=== PATIENT | male | born 1940 | race Caucasian/White ===

== ENCOUNTER 2018-06-24 09:18 | Inpatient (IN) | payer MEDICARE, BC ==
[~2018-06-24 09:18] MED LIST: DESFLURANE 15 MIN
[2018-06-24] MEDS: LACTATED RINGER'S 1,000 ML IV* (10:33)
[2018-06-24] MEDS ORDERED: HEPARIN 1000 UNITS/ML 10 ML INJ (11:40)
[2018-06-24] MEDS ORDERED: GELATIN SIZE 100 SPONGE (11:40)
[2018-06-24] MEDS ORDERED: PROPOFOL 20 ML (12:05)
[2018-06-24] MEDS ORDERED: ROCURONIUM 50 MG INJ (12:09)
[2018-06-24] MEDS ORDERED: LABETALOL HCL 20MG INJ (12:38)
[2018-06-24] MEDS ORDERED: CEFAZOLIN 1 GM INJ (13:08)
[2018-06-24] MEDS ORDERED: DEXAMETHASONE 4 MG/ML 5 ML INJ (13:09)
[2018-06-24] MEDS ORDERED: ONDANSETRON 4 MG INJ (13:09)
[2018-06-24] MEDS ORDERED: morphine 10 MG INJ (13:10)
[2018-06-24] MEDS: BUPIVACAINE 0.5%/EPI (SDV) 30 ML INJ (13:45)
[2018-06-24] MEDS: THROMBIN 5000 UNIT VIAL (13:46)
[2018-06-24] MEDS: POLYMYXIN/BACITRACIN 1L IRRIG IRR (13:47)
[2018-06-24] MEDS: SURGIFOAM POWDER 1 GM KIT (13:48)
[2018-06-24] MEDS ORDERED: METOCLOPRAMIDE 10 MG INJ IV (15:30)
[2018-06-24] MEDS ORDERED: ACETAMINOPHEN 325 MG TAB PO (15:30)
[2018-06-24] MEDS ORDERED: morphine 4 MG/ML VIAL (15:30)
[2018-06-24] MEDS ORDERED: FENTAnyl 50 MCG/ML VIAL IV ×2 (15:30)
[2018-06-24] MEDS ORDERED: MEPERIDINE 25 MG INJ IV (15:30)
[2018-06-24] MEDS ORDERED: EPHEDrine SULFATE 50 MG/5 ML SYG IV (15:30)
[2018-06-24] MEDS ORDERED: ONDANSETRON 4 MG INJ IV ×2 (15:30)
[2018-06-24] MEDS ORDERED: NALOXONE (0.4 MG/ML) INJ IV (15:30)
[2018-06-24] MEDS ORDERED: DIPHENHYDRAMINE 25 MG CAP PO (15:30)
[2018-06-24] MEDS ORDERED: CEPASTAT LOZENGE MT (15:30)
[2018-06-24] MEDS ORDERED: ALBUTEROL 0.083% (NEB) 2.5 MG/3 ML AMP HHN (15:30)
[2018-06-24] MEDS ORDERED: HYDROmorphONE 0.5 MG/0.5 ML SYG IV ×3 (15:30)
[2018-06-24] MEDS ORDERED: AL HYDROX/MG HYDROX/SIMETH 30 ML CUP PO (15:30)
[2018-06-24] MEDS ORDERED: DIPHENHYDRAMINE 50 MG INJ IV (15:30)
[2018-06-24] MEDS ORDERED: OXYCODONE/ACETAMINOPHEN (10/325) TAB PO (15:30)
[2018-06-24] MEDS ORDERED: BISACODYL 10 MG SUPP PR (15:30)
[2018-06-24] MEDS ORDERED: MIDAZOLAM 1 MG/ML 2 ML INJ IV (15:30)
[2018-06-24] MEDS ORDERED: HYDROmorphONE 1 MG/ML SYG (15:32)
[2018-06-24] MEDS ORDERED: FENTAnyl 50 MCG/ML VIAL ×2 (15:39→15:49)
[2018-06-24] MEDS ORDERED: hydrALAzine 20 MG INJ (16:01)
[2018-06-24] MEDS: hydrALAzine 20 MG INJ IV (16:10)
[2018-06-24] MEDS: FENTAnyl 50 MCG/ML VIAL IV ×5 (16:11→16:55)
[2018-06-24] MEDS: LABETALOL HCL 20MG INJ IV (16:22)
[2018-06-24] MEDS: D5W-0.45 NACL + KCL 20 MEQ 1,000 ML IV (16:26)
[2018-06-24] MEDS: CEFAZOLIN 1 GM/50 ML (PMX) 50 ML IVPB (16:32)
[2018-06-24] MEDS: HYDROmorphONE 0.2 MG/ML PCA IV (18:33)
[2018-06-24] MEDS: HYDROmorphONE 0.5 MG/0.5 ML SYG IV (19:33)
[2018-06-24] MEDS: CYCLOBENZAPRINE 10 MG TAB PO (22:08)
[2018-06-24] MEDS: ATORVASTATIN 10 MG TAB PO (22:08)
[2018-06-24] MEDS: DOCUSATE SODIUM 100 MG CAP PO (22:08)
[2018-06-25] MEDS: BUPIVACAINE 0.5%/EPI (SDV) 30 ML INJ
[2018-06-25] MEDS: CEFAZOLIN 1 GM/50 ML (PMX) 50 ML IVPB ×3 (00:07→18:22)
[2018-06-25] MEDS: DIPHENHYDRAMINE 50 MG INJ IV (00:08)
[2018-06-25] MEDS: HYDROmorphONE 0.2 MG/ML PCA IV ×3 (02:13→19:37)
[2018-06-25] MEDS: HYDROmorphONE 0.5 MG/0.5 ML SYG IV ×4 (03:43→19:51)
[2018-06-25] MEDS: D5W-0.45 NACL + KCL 20 MEQ 1,000 ML IV ×2 (03:47→16:16)
[2018-06-25 04:37] LABS: ADD MAN DIFF? NO
[2018-06-25 04:39] LABS: BASOPHILS % 0.2 % (0.0-2.0); HEMATOCRIT 38.7 % (42.0-52.0); HEMOGLOBIN 13.5 g/dl (14.0-18.0); LYMPHOCYTES # 1.3 10^3/ul (0.8-2.9); LYMPHOCYTES % 12.9 % (15.0-51.0); MEAN CORPUSCULAR HEMOGLOBIN 34.5 pg (29.0-33.0); MEAN CORPUSCULAR HGB CONC 34.9 g/dl (32.0-37.0); MEAN PLATELET VOLUME 9.5 fl (7.4-10.4); MONOCYTE # 1.4 10^3/ul (0.3-0.9); MONOCYTES % 14.1 % (0.0-11.0); NEUTROPHIL # 7.3 10^3/ul (1.6-7.5); NEUTROPHILS % 72.5 % (39.0-77.0); PLATELET COUNT 183 10^3/UL (140-415); RED BLOOD COUNT 3.91 10^6/ul (4.70-6.10)
[2018-06-25 04:39] LABS: WHITE BLOOD COUNT 10.1 10^3/ul (4.8-10.8)
[2018-06-25 05:00] LABS: ANION GAP 5 (5-13); BLOOD UREA NITROGEN 11 mg/dl (7-20); CALCIUM 8.6 mg/dl (8.4-10.2); CARBON DIOXIDE 25 mmol/L (21-31); CHLORIDE 106 mmol/L (97-110); GLUCOSE 118 mg/dl (70-220); MAGNESIUM 1.9 mg/dl (1.7-2.5); POTASSIUM 3.7 mmol/L (3.5-5.1); SODIUM 136 mmol/L (135-144)
[2018-06-25] MEDS: CEFAZOLIN 2 GM/50 ML (PMX) 50 ML IVPB (06:00)
[2018-06-25] MEDS: PANTOPRAZOLE 40 MG INJ IV (06:14)
[2018-06-25] MEDS ORDERED: SURGIFOAM POWDER 1 GM KIT ×4 (06:39→11:45)
[2018-06-25] MEDS ORDERED: HEPARIN 1000 UNITS/ML 10 ML INJ ×2 (06:40→06:51)
[2018-06-25] MEDS ORDERED: SODIUM CL BACTERIOSTATIC 30 ML INJ (06:41)
[2018-06-25] MEDS ORDERED: BUPIVACAINE 0.25% (MPF) 30 ML INJ (06:42)
[2018-06-25] MEDS ORDERED: DESFLURANE 15 MIN (07:00)
[2018-06-25] MEDS ORDERED: CEFAZOLIN 1 GM INJ (07:00)
[2018-06-25] MEDS ORDERED: ROCURONIUM 50 MG INJ ×2 (07:00→07:20)
[2018-06-25] MEDS ORDERED: METOCLOPRAMIDE 10 MG INJ (07:00)
[2018-06-25] MEDS ORDERED: MIDAZOLAM 1 MG/ML 2 ML INJ ×2 (07:20→08:17)
[2018-06-25] MEDS ORDERED: PROPOFOL 20 ML (07:20)
[2018-06-25] MEDS ORDERED: LIDOCAINE 2% (SDV) 5 ML INJ (07:20)
[2018-06-25] MEDS ORDERED: ALBUMIN HUMAN 25% 200 ML (07:20)
[2018-06-25] MEDS ORDERED: SUCCINYLCHOLINE CHLORIDE 100 MG/5 ML SYG IV (07:20)
[2018-06-25] MEDS ORDERED: DEXAMETHASONE 4 MG/ML 5 ML INJ (07:25)
[2018-06-25] MEDS ORDERED: ONDANSETRON 4 MG INJ IV ×2 (07:30→15:30)
[2018-06-25] MEDS ORDERED: DIPHENHYDRAMINE 50 MG INJ IV ×2 (07:30→15:30)
[2018-06-25] MEDS ORDERED: IPRATROPIUM (NEB) 0.5 MG/2.5 ML AMP HHN (07:30)
[2018-06-25] MEDS ORDERED: MEPERIDINE 25 MG INJ IV (07:30)
[2018-06-25] MEDS ORDERED: HYDROmorphONE 0.5 MG/0.5 ML SYG IV ×3 (07:30)
[2018-06-25] MEDS ORDERED: LABETALOL HCL 20MG INJ IV (07:30)
[2018-06-25] MEDS ORDERED: ALBUMIN HUMAN 5% 250 ML IV (07:30)
[2018-06-25] MEDS ORDERED: hydrALAzine 20 MG INJ IV (07:30)
[2018-06-25] MEDS ORDERED: MIDAZOLAM 1 MG/ML 2 ML INJ IV (07:30)
[2018-06-25] MEDS ORDERED: FENTAnyl 50 MCG/ML VIAL IV ×2 (07:30)
[2018-06-25] MEDS ORDERED: LEVALBUTEROL (NEB) 1.25 MG/0.5 ML AMP HHN (07:30)
[2018-06-25] MEDS ORDERED: LORAZEPAM 2 MG INJ IV (07:30)
[2018-06-25] MEDS: CA CHLORIDE 10% 10 ML SYRINGE (08:40)
[2018-06-25] MEDS: CEFAZOLIN 1 GM INJ (08:40)
[2018-06-25] MEDS: THROMBIN 5000 UNIT VIAL ×4 (08:40→12:00)
[2018-06-25] MEDS: DUTASTERIDE 0.5 MG CAP PO (09:00)
[2018-06-25] MEDS: FLUTICASONE/VILANTEROL 200-25 INH DEVICE INH (09:00)
[2018-06-25] MEDS ORDERED: METOPROLOL (XL) 25 MG TAB PO (09:00)
[2018-06-25] MEDS ORDERED: hydrALAzine 20 MG INJ (09:22)
[2018-06-25] MEDS ORDERED: HYDROmorphONE 2 MG/ML SYG (10:36)
[2018-06-25] MEDS ORDERED: THROMBIN 5000 UNIT VIAL (10:42)
[2018-06-25] MEDS ORDERED: KETAMINE (50 MG/ML) 10 ML VIAL (13:48)
[2018-06-25] MEDS ORDERED: PROVENTIL HFA 6.7GM INHALER (15:06)
[2018-06-25] MEDS ORDERED: NALOXONE (0.4 MG/ML) INJ IV (15:30)
[2018-06-25] MEDS ORDERED: BISACODYL 10 MG SUPP PR (15:30)
[2018-06-25] MEDS ORDERED: OXYCODONE/ACETAMINOPHEN (10/325) TAB PO ×2 (15:30)
[2018-06-25] MEDS ORDERED: ACETAMINOPHEN 325 MG TAB PO (15:30)
[2018-06-25] MEDS ORDERED: AL HYDROX/MG HYDROX/SIMETH 30 ML CUP PO (15:30)
[2018-06-25] MEDS ORDERED: CEPASTAT LOZENGE MT (15:30)
[2018-06-25] MEDS: FLUTICASONE/VILANTEROL 100-25 INH (17:30)
[2018-06-25] MEDS: TAMSULOSIN (SR) 0.4 MG CAP PO (21:23)
[2018-06-25] MEDS: ATORVASTATIN 10 MG TAB PO (21:24)
[2018-06-25] MEDS: DOCUSATE SODIUM 100 MG CAP PO (21:24)
[2018-06-25] MEDS: METOPROLOL (XL) 25 MG TAB PO (21:24)
[2018-06-25] MEDS: DIPHENHYDRAMINE 25 MG CAP PO (21:25)
[2018-06-26] MEDS: CEFAZOLIN 1 GM/50 ML (PMX) 50 ML IVPB ×2 (00:46→09:08)
[2018-06-26] MEDS: D5W-0.45 NACL + KCL 20 MEQ 1,000 ML IV ×4 (02:40→21:30)
[2018-06-26] MEDS: HYDROmorphONE 0.5 MG/0.5 ML SYG IV ×5 (02:45→17:08)
[2018-06-26] MEDS: HYDROmorphONE 0.2 MG/ML PCA IV ×3 (03:22→17:09)
[2018-06-26 05:16] LABS: ADD MAN DIFF? NO
[2018-06-26 05:28] LABS: BASOPHILS % 0.1 % (0.0-2.0); HEMATOCRIT 28.1 % (42.0-52.0); HEMOGLOBIN 9.7 g/dl (14.0-18.0); LYMPHOCYTES # 0.7 10^3/ul (0.8-2.9); MEAN CORPUSCULAR HGB CONC 34.5 g/dl (32.0-37.0); MEAN CORPUSCULAR VOLUME 101.4 fl (82.0-101.0); MEAN PLATELET VOLUME 10.6 fl (7.4-10.4); MONOCYTE # 1.5 10^3/ul (0.3-0.9); MONOCYTES % 11.3 % (0.0-11.0); NEUTROPHIL # 10.8 10^3/ul (1.6-7.5); NEUTROPHILS % 83.2 % (39.0-77.0); PLATELET COUNT 143 10^3/UL (140-415); RED BLOOD COUNT 2.77 10^6/ul (4.70-6.10); RED CELL DISTRIBUTION WIDTH 13.1 % (11.5-14.5)
[2018-06-26] MEDS: PANTOPRAZOLE 40 MG INJ IV (05:40)
[2018-06-26 06:18] LABS: ANION GAP 11 (5-13); BLOOD UREA NITROGEN 12 mg/dl (7-20); CALCIUM 8.5 mg/dl (8.4-10.2); CARBON DIOXIDE 21 mmol/L (21-31); CHLORIDE 107 mmol/L (97-110); CREATININE 0.57 mg/dl (0.61-1.24); GLUCOSE 147 mg/dl (70-220); POTASSIUM 4.2 mmol/L (3.5-5.1); SODIUM 139 mmol/L (135-144)
[2018-06-26] MEDS: FINASTERIDE 5 MG TAB PO (09:08)
[2018-06-26] MEDS: DOCUSATE SODIUM 100 MG CAP PO ×2 (09:08→20:28)
[2018-06-26] MEDS: DUTASTERIDE 0.5 MG CAP PO (09:08)
[2018-06-26] MEDS: METOPROLOL (XL) 25 MG TAB PO ×2 (09:09→20:29)
[2018-06-26] MEDS: FLUTICASONE/VILANTEROL 100-25 INH (09:13)
[2018-06-26] MEDS: TAMSULOSIN (SR) 0.4 MG CAP PO (20:28)
[2018-06-26] MEDS: ATORVASTATIN 10 MG TAB PO (20:28)
[2018-06-27] MEDS: HYDROmorphONE 0.2 MG/ML PCA IV ×2 (00:13→07:52)
[2018-06-27] MEDS: D5W-0.45 NACL + KCL 20 MEQ 1,000 ML IV (00:23)
[2018-06-27 05:39] LABS: ADD MAN DIFF? NO
[2018-06-27] MEDS: PANTOPRAZOLE 40 MG INJ IV (05:44)
[2018-06-27 05:46] LABS: BASOPHILS % 0.1 % (0.0-2.0); HEMATOCRIT 26.5 % (42.0-52.0); HEMOGLOBIN 9.2 g/dl (14.0-18.0); LYMPHOCYTES # 0.7 10^3/ul (0.8-2.9); LYMPHOCYTES % 6.1 % (15.0-51.0); MEAN CORPUSCULAR HEMOGLOBIN 34.7 pg (29.0-33.0); MEAN CORPUSCULAR HGB CONC 34.7 g/dl (32.0-37.0); MONOCYTE # 1.3 10^3/ul (0.3-0.9); MONOCYTES % 10.9 % (0.0-11.0); NEUTROPHIL # 9.8 10^3/ul (1.6-7.5); NEUTROPHILS % 82.6 % (39.0-77.0); PLATELET COUNT 122 10^3/UL (140-415); RED BLOOD COUNT 2.65 10^6/ul (4.70-6.10); RED CELL DISTRIBUTION WIDTH 12.8 % (11.5-14.5)
[2018-06-27 05:46] LABS: WHITE BLOOD COUNT 11.9 10^3/ul (4.8-10.8)
[2018-06-27 06:16] LABS: ANION GAP 6 (5-13); BLOOD UREA NITROGEN 6 mg/dl (7-20); CALCIUM 8.7 mg/dl (8.4-10.2); CARBON DIOXIDE 29 mmol/L (21-31); CHLORIDE 95 mmol/L (97-110); CREATININE 0.51 mg/dl (0.61-1.24); GLUCOSE 126 mg/dl (70-220); POTASSIUM 4.4 mmol/L (3.5-5.1); SODIUM 130 mmol/L (135-144)
[2018-06-27] MEDS: FLUTICASONE/VILANTEROL 100-25 INH ×2 (09:00→12:46)
[2018-06-27] MEDS: DUTASTERIDE 0.5 MG CAP PO ×2 (09:00→12:47)
[2018-06-27] MEDS: DOCUSATE SODIUM 100 MG CAP PO ×2 (09:42→20:42)
[2018-06-27] MEDS: FINASTERIDE 5 MG TAB PO (09:42)
[2018-06-27] MEDS: METOPROLOL (XL) 25 MG TAB PO ×2 (09:43→20:43)
[2018-06-27] MEDS: OXYCODONE/ACETAMINOPHEN (5/325) TAB PO (10:46)
[2018-06-27] MEDS: CYCLOBENZAPRINE 10 MG TAB PO ×2 (12:51→18:56)
[2018-06-27] MEDS ORDERED: OXYCODONE/ACETAMINOPHEN (10/325) TAB PO (15:00)
[2018-06-27] MEDS: OXYCODONE/ACETAMINOPHEN (10/325) TAB PO ×2 (16:19→21:39)
[2018-06-27] MEDS: ATORVASTATIN 10 MG TAB PO (20:42)
[2018-06-27] MEDS: TAMSULOSIN (SR) 0.4 MG CAP PO (20:42)
[2018-06-27] MEDS: DOXAZOSIN 4 MG TAB PO (20:43)
== END 2018-06-27 22:20 | DRG 454 ==
LOC: REC 09:18 → MS1 06-27 03:28 → ICU 15:31 → MS1 06-26 22:29
PROC: 0SG10A0 Fusion of 2 or more Lumbar Vertebral Joints with Interbody Fusion Device, Anterior Approach, Anterior Column, Open Approach (ICD-10-PCS; principal; 2018-06-24 12:00)
PROC: 0SB20ZZ Excision of Lumbar Vertebral Disc, Open Approach (ICD-10-PCS; 2018-06-24 12:00)
PROC: 4A11X4G Monitoring of Peripheral Nervous Electrical Activity, Intraoperative, External Approach (ICD-10-PCS; 2018-06-24 12:00)
PROC: 0SG1071 Fusion of 2 or more Lumbar Vertebral Joints with Autologous Tissue Substitute, Posterior Approach, Posterior Column, Open Approach (ICD-10-PCS; 2018-06-24 12:24)
PROC: 0SG30AJ Fusion of Lumbosacral Joint with Interbody Fusion Device, Posterior Approach, Anterior Column, Open Approach (ICD-10-PCS; 2018-06-24 12:24)
PROC: 0SG00AJ Fusion of Lumbar Vertebral Joint with Interbody Fusion Device, Posterior Approach, Anterior Column, Open Approach (ICD-10-PCS; 2018-06-24 12:24)
PROC: 0SG3071 Fusion of Lumbosacral Joint with Autologous Tissue Substitute, Posterior Approach, Posterior Column, Open Approach (ICD-10-PCS; 2018-06-24 12:24)
PROC: 0SB40ZZ Excision of Lumbosacral Disc, Open Approach (ICD-10-PCS; 2018-06-24 12:24)
PROC: 0SB20ZZ Excision of Lumbar Vertebral Disc, Open Approach (ICD-10-PCS; 2018-06-24 12:24)
PROC: 4A11X4G Monitoring of Peripheral Nervous Electrical Activity, Intraoperative, External Approach (ICD-10-PCS; 2018-06-24 12:24)
DX: M41.86 Other forms of scoliosis, lumbar region (principal); D62 Acute posthemorrhagic anemia; M51.16 Intervertebral disc disorders with radiculopathy, lumbar region; I10 Essential (primary) hypertension; E78.5 Hyperlipidemia, unspecified; I25.10 Atherosclerotic heart disease of native coronary artery without angina pectoris; N40.1 Benign prostatic hyperplasia with lower urinary tract symptoms; R39.11 Hesitancy of micturition; J44.9 Chronic obstructive pulmonary disease, unspecified; G47.33 Obstructive sleep apnea (adult) (pediatric); R41.0 Disorientation, unspecified
CPT/HCPCS: 71045; 72020; 72100; 72110; 80048; 83735; 85025; 86850; 86900; 86901; 86920; 86999; 87081; 88184; 88185; 88304; 88307; 88331; 88341; 88342; 88374; 94660; 97110; 97116; 97163; 97530

== ENCOUNTER 2018-06-27 23:00 | Inpatient (IN) | payer MEDICARE, BC ==
[2018-06-28] MEDS ORDERED: MAGNESIUM HYDROXIDE 30ML CUP PO (01:30)
[2018-06-28] MEDS ORDERED: CEPASTAT LOZENGE MT (01:30)
[2018-06-28] MEDS ORDERED: ALBUTEROL 0.083% (NEB) 2.5 MG/3 ML AMP INH (01:30)
[2018-06-28] MEDS ORDERED: LACTULOSE 30ML CUP PO (01:30)
[2018-06-28] MEDS ORDERED: ONDANSETRON 4 MG INJ IV (01:30)
[2018-06-28 02:13] LABS: ADD UMIC YES; UR ASCORBIC ACID NEGATIVE (NEGATIVE); UR BILIRUBIN (Dip) NEGATIVE (NEGATIVE); UR BLOOD (Dip) 1+ mg/dL (NEGATIVE); UR CLARITY CLEAR (CLEAR); UR COLOR YELLOW (YELLOW); UR GLUCOSE (Dip) NEGATIVE (NEGATIVE); UR KETONES (Dip) 1+ mg/dL (NEGATIVE); UR LEUKOCYTE ESTERASE (Dip) NEGATIVE Leu/ul (NEGATIVE); UR NITRITE (Dip) NEGATIVE (NEGATIVE); UR RBC 0 /HPF (0-5); UR SPECIFIC GRAVITY (Dip) 1.008 (1.003-1.030); UR TOTAL PROTEIN (Dip) NEGATIVE (NEGATIVE); UR UROBILINOGEN (Dip) NEGATIVE (NEGATIVE); UR WBC 1 /HPF (0-5)
[2018-06-28] MEDS: OXYCODONE/ACETAMINOPHEN (10/325) TAB PO (04:25)
[2018-06-28] MEDS ORDERED: PANTOPRAZOLE 40 MG INJ IV (06:00)
[2018-06-28 06:35] LABS: ADD MAN DIFF? NO
[2018-06-28 06:50] LABS: EOSINOPHILS % 0.2 % (0.0-7.0); HEMATOCRIT 22.4 % (42.0-52.0); HEMOGLOBIN 7.8 g/dl (14.0-18.0); LYMPHOCYTES # 0.7 10^3/ul (0.8-2.9); LYMPHOCYTES % 9.1 % (15.0-51.0); MEAN CORPUSCULAR HEMOGLOBIN 34.2 pg (29.0-33.0); MEAN CORPUSCULAR HGB CONC 34.8 g/dl (32.0-37.0); MEAN CORPUSCULAR VOLUME 98.2 fl (82.0-101.0); MEAN PLATELET VOLUME 9.6 fl (7.4-10.4); MONOCYTE # 0.8 10^3/ul (0.3-0.9); MONOCYTES % 9.6 % (0.0-11.0); NEUTROPHIL # 6.5 10^3/ul (1.6-7.5); NEUTROPHILS % 80.6 % (39.0-77.0); PLATELET COUNT 135 10^3/UL (140-415); RED BLOOD COUNT 2.28 10^6/ul (4.70-6.10); RED CELL DISTRIBUTION WIDTH 12.4 % (11.5-14.5)
[2018-06-28 07:13] LABS: ALANINE AMINOTRANSFERASE 48 IU/L (13-69); ALBUMIN 2.9 g/dl (3.3-4.9); ALBUMIN/GLOBULIN RATIO 1.31; ALKALINE PHOSPHATASE 49 IU/L (42-121); ANION GAP 7 (5-13); ASPARTATE AMINO TRANSFERASE 61 IU/L (15-46); BILIRUBIN,INDIRECT 0.7 mg/dl (0-1.1); BILIRUBIN,TOTAL 0.7 mg/dl (0.2-1.3); BLOOD UREA NITROGEN 10 mg/dl (7-20); CALCIUM 8.4 mg/dl (8.4-10.2); CARBON DIOXIDE 27 mmol/L (21-31); CHLORIDE 98 mmol/L (97-110); CREATININE 0.52 mg/dl (0.61-1.24); GLUCOSE 105 mg/dl (70-220); POTASSIUM 3.6 mmol/L (3.5-5.1); SODIUM 132 mmol/L (135-144); TOTAL PROTEIN 5.1 g/dl (6.1-8.1)
[2018-06-28] MEDS: HYDROmorphONE 0.5 MG/0.5 ML SYG IV ×2 (08:07→12:12)
[2018-06-28] MEDS ORDERED: HYDROmorphONE 0.5 MG/0.5 ML SYG IV (12:30)
[2018-06-28] MEDS: DUTASTERIDE 0.5 MG CAP PO (12:43)
[2018-06-28] MEDS: PANTOPRAZOLE (EC) 40 MG TAB PO (12:44)
[2018-06-28] MEDS: FLUTICASONE/VILANTEROL 100-25 INH (12:44)
[2018-06-28] MEDS: METOPROLOL (XL) 25 MG TAB PO ×2 (12:45→20:55)
[2018-06-28] MEDS: DOCUSATE SODIUM 100 MG CAP PO ×2 (12:45→20:53)
[2018-06-28] MEDS: HYDROmorphONE 1 MG/ML SYG IV ×5 (13:08→23:03)
[2018-06-28] MEDS: KETOROLAC 30 MG INJ IM ×2 (14:59→15:01)
[2018-06-28] MEDS: SENNA TAB PO (20:54)
[2018-06-28] MEDS: ATORVASTATIN 10 MG TAB PO (20:54)
[2018-06-28] MEDS: TAMSULOSIN (SR) 0.4 MG CAP PO (20:54)
[2018-06-28] MEDS: DOXAZOSIN 4 MG TAB PO (21:58)
[2018-06-29] MEDS: HYDROmorphONE 1 MG/ML SYG IV ×3 (02:00→10:25)
[2018-06-29] MEDS: CYCLOBENZAPRINE 10 MG TAB PO ×3 (03:03→18:30)
[2018-06-29] MEDS: LACTULOSE 30ML CUP PO (07:12)
[2018-06-29] MEDS: PANTOPRAZOLE (EC) 40 MG TAB PO (07:12)
[2018-06-29] MEDS: OXYCODONE/ACETAMINOPHEN (10/325) TAB PO ×4 (07:30→20:18)
[2018-06-29] MEDS: DOCUSATE SODIUM 100 MG CAP PO ×2 (08:02→20:19)
[2018-06-29] MEDS: DUTASTERIDE 0.5 MG CAP PO (08:02)
[2018-06-29] MEDS: FLUTICASONE/VILANTEROL 100-25 INH (08:03)
[2018-06-29] MEDS: METOPROLOL (XL) 25 MG TAB PO ×2 (08:03→20:18)
[2018-06-29] MEDS: ATORVASTATIN 10 MG TAB PO (20:17)
[2018-06-29] MEDS: TAMSULOSIN (SR) 0.4 MG CAP PO (20:17)
[2018-06-29] MEDS: SENNA TAB PO (20:19)
[2018-06-29] MEDS: DOXAZOSIN 4 MG TAB PO (22:12)
[2018-06-30] MEDS: OXYCODONE/ACETAMINOPHEN (10/325) TAB PO ×4 (00:21→18:27)
[2018-06-30] MEDS: HYDROmorphONE 1 MG/ML SYG IV ×7 (01:29→22:35)
[2018-06-30] MEDS: PANTOPRAZOLE (EC) 40 MG TAB PO (07:02)
[2018-06-30 07:23] LABS: ADD MAN DIFF? NO
[2018-06-30 07:27] LABS: BASOPHILS % 0.3 % (0.0-2.0); EOSINOPHILS # 0.3 10^3/ul (0.0-0.5); EOSINOPHILS % 3.6 % (0.0-7.0); HEMATOCRIT 24.3 % (42.0-52.0); HEMOGLOBIN 8.2 g/dl (14.0-18.0); LYMPHOCYTES # 1.1 10^3/ul (0.8-2.9); LYMPHOCYTES % 16.3 % (15.0-51.0); MEAN CORPUSCULAR HEMOGLOBIN 33.6 pg (29.0-33.0); MEAN CORPUSCULAR HGB CONC 33.7 g/dl (32.0-37.0); MEAN CORPUSCULAR VOLUME 99.6 fl (82.0-101.0); MEAN PLATELET VOLUME 8.9 fl (7.4-10.4); MONOCYTE # 1.1 10^3/ul (0.3-0.9); MONOCYTES % 15.9 % (0.0-11.0); NEUTROPHIL # 4.3 10^3/ul (1.6-7.5); NEUTROPHILS % 63.2 % (39.0-77.0); PLATELET COUNT 222 10^3/UL (140-415); RED BLOOD COUNT 2.44 10^6/ul (4.70-6.10); RED CELL DISTRIBUTION WIDTH 12.9 % (11.5-14.5)
[2018-06-30 07:27] LABS: WHITE BLOOD COUNT 6.9 10^3/ul (4.8-10.8)
[2018-06-30 07:57] LABS: ANION GAP 8 (5-13); BLOOD UREA NITROGEN 12 mg/dl (7-20); CALCIUM 8.4 mg/dl (8.4-10.2); CARBON DIOXIDE 32 mmol/L (21-31); CHLORIDE 96 mmol/L (97-110); CREATININE 0.55 mg/dl (0.61-1.24); GLUCOSE 105 mg/dl (70-220); POTASSIUM 3.3 mmol/L (3.5-5.1); SODIUM 136 mmol/L (135-144)
[2018-06-30 08:00] LABS: IRON 33 ug/dl (35-150)
[2018-06-30 08:10] LABS: % IRON SATURATION 15 % SAT (22-52); TOTAL IRON BINDING CAPACITY 227 ug/dl (241-421)
[2018-06-30] MEDS: DOCUSATE SODIUM 100 MG CAP PO ×2 (09:00→20:26)
[2018-06-30] MEDS: GABAPENTIN 100 MG CAP PO ×3 (09:17→20:28)
[2018-06-30] MEDS: BACLOFEN 10 MG TAB PO ×2 (09:17→20:27)
[2018-06-30] MEDS: DUTASTERIDE 0.5 MG CAP PO (09:17)
[2018-06-30] MEDS: METOPROLOL (XL) 25 MG TAB PO ×2 (09:18→20:35)
[2018-06-30] MEDS: FLUTICASONE/VILANTEROL 100-25 INH (09:19)
[2018-06-30] MEDS: FERROUS FUMARATE (SR) TAB PO (14:22)
[2018-06-30] MEDS: POTASSIUM CHLORIDE (SR) 20 MEQ TAB PO (14:22)
[2018-06-30] MEDS: ATORVASTATIN 10 MG TAB PO (20:26)
[2018-06-30] MEDS: SENNA TAB PO (20:26)
[2018-06-30] MEDS: TAMSULOSIN (SR) 0.4 MG CAP PO (20:28)
[2018-06-30] MEDS: DOXAZOSIN 4 MG TAB PO (20:34)
[2018-07-01] MEDS: HYDROmorphONE 1 MG/ML SYG IV ×10 (00:35→23:16)
[2018-07-01] MEDS: PANTOPRAZOLE (EC) 40 MG TAB PO (05:44)
[2018-07-01] MEDS: OXYCODONE/ACETAMINOPHEN (10/325) TAB PO ×2 (06:25→14:21)
[2018-07-01] MEDS: DUTASTERIDE 0.5 MG CAP PO (09:53)
[2018-07-01] MEDS: BACLOFEN 10 MG TAB PO ×2 (09:54→21:04)
[2018-07-01] MEDS: GABAPENTIN 100 MG CAP PO ×3 (09:54→21:04)
[2018-07-01] MEDS: FERROUS FUMARATE (SR) TAB PO (09:54)
[2018-07-01] MEDS: METOPROLOL (XL) 25 MG TAB PO ×2 (09:55→21:04)
[2018-07-01] MEDS: DOCUSATE SODIUM 100 MG CAP PO ×2 (09:55→21:04)
[2018-07-01] MEDS: FLUTICASONE/VILANTEROL 100-25 INH (09:55)
[2018-07-01] MEDS: SENNA TAB PO (21:04)
[2018-07-01] MEDS: ATORVASTATIN 10 MG TAB PO (21:04)
[2018-07-01] MEDS: TAMSULOSIN (SR) 0.4 MG CAP PO (21:04)
[2018-07-01] MEDS: DOXAZOSIN 4 MG TAB PO (21:05)
[2018-07-02] MEDS: HYDROmorphONE 1 MG/ML SYG IV ×2 (02:37→05:45)
[2018-07-02] MEDS: PANTOPRAZOLE (EC) 40 MG TAB PO (05:44)
[2018-07-02] MEDS: FERROUS FUMARATE (SR) TAB PO (08:46)
[2018-07-02] MEDS: DUTASTERIDE 0.5 MG CAP PO (08:46)
[2018-07-02] MEDS: METOPROLOL (XL) 25 MG TAB PO ×2 (08:46→20:39)
[2018-07-02] MEDS: FLUTICASONE/VILANTEROL 100-25 INH (08:46)
[2018-07-02] MEDS: BACLOFEN 10 MG TAB PO ×2 (08:47→20:38)
[2018-07-02] MEDS: GABAPENTIN 100 MG CAP PO ×3 (08:47→20:38)
[2018-07-02] MEDS: DOCUSATE SODIUM 100 MG CAP PO ×2 (08:47→20:37)
[2018-07-02 09:56] LABS: ANION GAP 8 (5-13); BLOOD UREA NITROGEN 11 mg/dl (7-20); CARBON DIOXIDE 27 mmol/L (21-31); CHLORIDE 99 mmol/L (97-110); CREATININE 0.52 mg/dl (0.61-1.24); GLUCOSE 105 mg/dl (70-220); SODIUM 134 mmol/L (135-144)
[2018-07-02] MEDS: OXYCODONE/ACETAMINOPHEN (10/325) TAB PO ×4 (09:57→22:46)
[2018-07-02] MEDS: SENNA TAB PO (20:37)
[2018-07-02] MEDS: TAMSULOSIN (SR) 0.4 MG CAP PO (20:38)
[2018-07-02] MEDS: ATORVASTATIN 10 MG TAB PO (20:38)
[2018-07-02] MEDS: DOXAZOSIN 4 MG TAB PO (20:39)
[2018-07-03] MEDS: OXYCODONE/ACETAMINOPHEN (10/325) TAB PO ×5 (05:18→22:39)
[2018-07-03] MEDS: PANTOPRAZOLE (EC) 40 MG TAB PO (05:18)
[2018-07-03] MEDS: BACLOFEN 10 MG TAB PO ×2 (08:34→21:06)
[2018-07-03] MEDS: DUTASTERIDE 0.5 MG CAP PO (08:34)
[2018-07-03] MEDS: FLUTICASONE/VILANTEROL 100-25 INH (08:34)
[2018-07-03] MEDS: DOCUSATE SODIUM 100 MG CAP PO ×2 (08:34→21:06)
[2018-07-03] MEDS: FERROUS FUMARATE (SR) TAB PO (08:34)
[2018-07-03] MEDS: GABAPENTIN 100 MG CAP PO ×3 (08:34→21:06)
[2018-07-03] MEDS: METOPROLOL (XL) 25 MG TAB PO ×2 (08:35→21:07)
[2018-07-03] MEDS: ATORVASTATIN 10 MG TAB PO (21:06)
[2018-07-03] MEDS: SENNA TAB PO (21:06)
[2018-07-03] MEDS: TAMSULOSIN (SR) 0.4 MG CAP PO (21:06)
[2018-07-03] MEDS: DOXAZOSIN 4 MG TAB PO (21:07)
[2018-07-04] MEDS: DIPHENHYDRAMINE 25 MG CAP PO (00:01)
[2018-07-04] MEDS: ZOLPIDEM 5 MG TAB PO ×2 (01:55→21:33)
[2018-07-04] MEDS: HYDROmorphONE 1 MG/ML SYG IV ×4 (04:36→17:13)
[2018-07-04] MEDS: PANTOPRAZOLE (EC) 40 MG TAB PO (05:55)
[2018-07-04] MEDS: ACETAMINOPHEN 325 MG TAB PO (05:55)
[2018-07-04] MEDS: OXYCODONE/ACETAMINOPHEN (10/325) TAB PO ×2 (08:37→17:50)
[2018-07-04] MEDS: METOPROLOL (XL) 25 MG TAB PO ×2 (09:00→21:34)
[2018-07-04] MEDS: DOCUSATE SODIUM 100 MG CAP PO ×2 (09:00→21:34)
[2018-07-04] MEDS: FERROUS FUMARATE (SR) TAB PO (10:17)
[2018-07-04] MEDS: FLUTICASONE/VILANTEROL 100-25 INH (10:17)
[2018-07-04] MEDS: BACLOFEN 10 MG TAB PO ×2 (10:18→21:33)
[2018-07-04] MEDS: DUTASTERIDE 0.5 MG CAP PO ×2 (14:54→15:01)
[2018-07-04] MEDS: GABAPENTIN 100 MG CAP PO (17:05)
[2018-07-04] MEDS: GABAPENTIN 400 MG CAP PO ×2 (17:50→17:52)
[2018-07-04] MEDS: HYDROmorphONE 2 MG/ML SYG IV (21:19)
[2018-07-04] MEDS: ATORVASTATIN 10 MG TAB PO (21:33)
[2018-07-04] MEDS: SENNA TAB PO (21:33)
[2018-07-04] MEDS: TAMSULOSIN (SR) 0.4 MG CAP PO (21:33)
[2018-07-04] MEDS: DOXAZOSIN 4 MG TAB PO (21:34)
[2018-07-05] MEDS: HYDROmorphONE 2 MG/ML SYG IV ×6 (01:10→22:23)
[2018-07-05] MEDS: PANTOPRAZOLE (EC) 40 MG TAB PO (06:29)
[2018-07-05] MEDS: OXYCODONE/ACETAMINOPHEN (10/325) TAB PO ×4 (06:29→20:18)
[2018-07-05] MEDS: FERROUS FUMARATE (SR) TAB PO (08:49)
[2018-07-05] MEDS: METOPROLOL (XL) 25 MG TAB PO ×2 (08:49→20:19)
[2018-07-05] MEDS: BACLOFEN 10 MG TAB PO ×2 (08:49→20:18)
[2018-07-05] MEDS: DOCUSATE SODIUM 100 MG CAP PO ×2 (08:50→20:18)
[2018-07-05] MEDS: FLUTICASONE/VILANTEROL 100-25 INH (08:50)
[2018-07-05] MEDS: GABAPENTIN 100 MG CAP PO ×2 (08:50→17:22)
[2018-07-05] MEDS: GABAPENTIN 400 MG CAP PO (18:11)
[2018-07-05] MEDS: SENNA TAB PO (20:18)
[2018-07-05] MEDS: ATORVASTATIN 10 MG TAB PO (20:18)
[2018-07-05] MEDS: TAMSULOSIN (SR) 0.4 MG CAP PO (20:19)
[2018-07-05] MEDS: DOXAZOSIN 4 MG TAB PO (20:19)
[2018-07-05] MEDS: ZOLPIDEM 5 MG TAB PO (22:24)
[2018-07-06] MEDS: HYDROmorphONE 2 MG/ML SYG IV ×9 (02:26→23:17)
[2018-07-06] MEDS: OXYCODONE/ACETAMINOPHEN (10/325) TAB PO ×4 (04:45→22:16)
[2018-07-06] MEDS: PANTOPRAZOLE (EC) 40 MG TAB PO (06:22)
[2018-07-06] MEDS: GABAPENTIN 100 MG CAP PO ×2 (08:12→17:05)
[2018-07-06] MEDS: BACLOFEN 10 MG TAB PO ×2 (08:14→21:05)
[2018-07-06] MEDS: DUTASTERIDE 0.5 MG CAP PO (08:14)
[2018-07-06] MEDS: METOPROLOL (XL) 25 MG TAB PO ×2 (08:14→21:06)
[2018-07-06] MEDS: DOCUSATE SODIUM 100 MG CAP PO ×2 (08:14→21:05)
[2018-07-06] MEDS: FLUTICASONE/VILANTEROL 100-25 INH (08:54)
[2018-07-06] MEDS: FERROUS FUMARATE (SR) TAB PO (09:00)
[2018-07-06] MEDS: KETOROLAC 30 MG INJ IV (16:54)
[2018-07-06] MEDS: GABAPENTIN 400 MG CAP PO (18:35)
[2018-07-06] MEDS: TAMSULOSIN (SR) 0.4 MG CAP PO (21:05)
[2018-07-06] MEDS: ATORVASTATIN 10 MG TAB PO (21:05)
[2018-07-06] MEDS: SENNA TAB PO (21:05)
[2018-07-06] MEDS: DOXAZOSIN 4 MG TAB PO (21:06)
[2018-07-07] MEDS: HYDROmorphONE 2 MG/ML SYG IV ×9 (01:20→22:20)
[2018-07-07] MEDS: OXYCODONE/ACETAMINOPHEN (10/325) TAB PO ×2 (04:24→08:38)
[2018-07-07] MEDS: PANTOPRAZOLE (EC) 40 MG TAB PO (05:55)
[2018-07-07] MEDS: FERROUS FUMARATE (SR) TAB PO (08:39)
[2018-07-07] MEDS: GABAPENTIN 100 MG CAP PO ×2 (08:39→18:09)
[2018-07-07] MEDS: DUTASTERIDE 0.5 MG CAP PO (08:39)
[2018-07-07] MEDS: BACLOFEN 10 MG TAB PO ×2 (08:40→21:08)
[2018-07-07] MEDS: METOPROLOL (XL) 25 MG TAB PO ×2 (08:40→21:10)
[2018-07-07] MEDS: DOCUSATE SODIUM 100 MG CAP PO ×2 (08:40→21:08)
[2018-07-07] MEDS: FLUTICASONE/VILANTEROL 100-25 INH (08:41)
[2018-07-07] MEDS: BISACODYL (EC) 5 MG TAB PO (10:06)
[2018-07-07] MEDS: GABAPENTIN 400 MG CAP PO (18:07)
[2018-07-07] MEDS: ATORVASTATIN 10 MG TAB PO (21:08)
[2018-07-07] MEDS: TAMSULOSIN (SR) 0.4 MG CAP PO (21:08)
[2018-07-07] MEDS: SENNA TAB PO (21:08)
[2018-07-07] MEDS: DOXAZOSIN 4 MG TAB PO (21:10)
[2018-07-07] MEDS: ZOLPIDEM 5 MG TAB PO (23:11)
[2018-07-08] MEDS: HYDROmorphONE 2 MG/ML SYG IV ×9 (05:45→23:11)
[2018-07-08] MEDS: PANTOPRAZOLE (EC) 40 MG TAB PO (05:45)
[2018-07-08] MEDS: GABAPENTIN 100 MG CAP PO ×3 (07:44→20:46)
[2018-07-08] MEDS: FERROUS FUMARATE (SR) TAB PO (08:34)
[2018-07-08] MEDS: BACLOFEN 10 MG TAB PO ×2 (08:34→20:45)
[2018-07-08] MEDS: DOCUSATE SODIUM 100 MG CAP PO ×2 (08:37→20:45)
[2018-07-08] MEDS: METOPROLOL (XL) 25 MG TAB PO ×2 (08:37→20:45)
[2018-07-08] MEDS: FLUTICASONE/VILANTEROL 100-25 INH (08:37)
[2018-07-08] MEDS: OXYCODONE/ACETAMINOPHEN (10/325) TAB PO ×2 (09:04→14:28)
[2018-07-08] MEDS: DUTASTERIDE 0.5 MG CAP PO (10:10)
[2018-07-08 14:05] LABS: ADD MAN DIFF? NO
[2018-07-08 14:08] LABS: WHITE BLOOD COUNT 12.4 10^3/ul (4.8-10.8)
[2018-07-08 14:08] LABS: BASOPHILS % 0.3 % (0.0-2.0); EOSINOPHILS # 0.1 10^3/ul (0.0-0.5); EOSINOPHILS % 0.5 % (0.0-7.0); HEMATOCRIT 32.2 % (42.0-52.0); HEMOGLOBIN 10.5 g/dl (14.0-18.0); LYMPHOCYTES # 0.9 10^3/ul (0.8-2.9); LYMPHOCYTES % 6.9 % (15.0-51.0); MEAN CORPUSCULAR HEMOGLOBIN 33.3 pg (29.0-33.0); MEAN CORPUSCULAR HGB CONC 32.6 g/dl (32.0-37.0); MEAN CORPUSCULAR VOLUME 102.2 fl (82.0-101.0); MEAN PLATELET VOLUME 8.2 fl (7.4-10.4); MONOCYTE # 0.9 10^3/ul (0.3-0.9); NEUTROPHIL # 10.5 10^3/ul (1.6-7.5); NEUTROPHILS % 84.7 % (39.0-77.0); PLATELET COUNT 581 10^3/UL (140-415); RED BLOOD COUNT 3.15 10^6/ul (4.70-6.10); RED CELL DISTRIBUTION WIDTH 13.5 % (11.5-14.5)
[2018-07-08 14:29] LABS: ANION GAP 15 (5-13); BLOOD UREA NITROGEN 18 mg/dl (7-20); CALCIUM 9.6 mg/dl (8.4-10.2); CARBON DIOXIDE 30 mmol/L (21-31); CHLORIDE 96 mmol/L (97-110); CREATININE 0.65 mg/dl (0.61-1.24); GLUCOSE 112 mg/dl (70-220); POTASSIUM 4.3 mmol/L (3.5-5.1); SODIUM 141 mmol/L (135-144)
[2018-07-08 14:52] LABS: ADD MAN DIFF? NO
[2018-07-08 14:54] LABS: WHITE BLOOD COUNT 13.1 10^3/ul (4.8-10.8)
[2018-07-08 14:54] LABS: BASOPHILS % 0.2 % (0.0-2.0); EOSINOPHILS # 0.1 10^3/ul (0.0-0.5); EOSINOPHILS % 0.5 % (0.0-7.0); HEMOGLOBIN 10.3 g/dl (14.0-18.0); LYMPHOCYTES # 1.1 10^3/ul (0.8-2.9); LYMPHOCYTES % 8.4 % (15.0-51.0); MEAN CORPUSCULAR HEMOGLOBIN 33.8 pg (29.0-33.0); MEAN CORPUSCULAR HGB CONC 33.2 g/dl (32.0-37.0); MEAN CORPUSCULAR VOLUME 101.6 fl (82.0-101.0); MONOCYTE # 1.2 10^3/ul (0.3-0.9); MONOCYTES % 8.8 % (0.0-11.0); NEUTROPHIL # 10.7 10^3/ul (1.6-7.5); NEUTROPHILS % 81.7 % (39.0-77.0); PLATELET COUNT 564 10^3/UL (140-415); RED BLOOD COUNT 3.05 10^6/ul (4.70-6.10); RED CELL DISTRIBUTION WIDTH 13.4 % (11.5-14.5)
[2018-07-08 15:27] LABS: C-REACTIVE PROTEIN 5.6 mg/dl (0.0-0.9)
[2018-07-08 15:36] LABS: ERYTHROCYTE SEDIMENTATION RATE 85 mm/Hr (0-20)
[2018-07-08] MEDS: GABAPENTIN 400 MG CAP PO (18:27)
[2018-07-08] MEDS: TAMSULOSIN (SR) 0.4 MG CAP PO (20:45)
[2018-07-08] MEDS: BISACODYL 10 MG SUPP PR (20:45)
[2018-07-08] MEDS: SENNA TAB PO (20:45)
[2018-07-08] MEDS: ATORVASTATIN 10 MG TAB PO (20:46)
[2018-07-08] MEDS: DOXAZOSIN 4 MG TAB PO (20:46)
[2018-07-08] MEDS: ZOLPIDEM 5 MG TAB PO (23:11)
[2018-07-09] MEDS: HYDROmorphONE 2 MG/ML SYG IV ×10 (03:00→21:45)
[2018-07-09 06:28] LABS: ADD MAN DIFF? NO
[2018-07-09 06:31] LABS: WHITE BLOOD COUNT 11.6 10^3/ul (4.8-10.8)
[2018-07-09 06:31] LABS: BASOPHILS % 0.3 % (0.0-2.0); EOSINOPHILS # 0.1 10^3/ul (0.0-0.5); EOSINOPHILS % 0.5 % (0.0-7.0); HEMOGLOBIN 9.5 g/dl (14.0-18.0); LYMPHOCYTES # 1.2 10^3/ul (0.8-2.9); MEAN CORPUSCULAR HEMOGLOBIN 33.6 pg (29.0-33.0); MEAN CORPUSCULAR HGB CONC 32.8 g/dl (32.0-37.0); MEAN CORPUSCULAR VOLUME 102.5 fl (82.0-101.0); MEAN PLATELET VOLUME 8.3 fl (7.4-10.4); MONOCYTE # 1.2 10^3/ul (0.3-0.9); MONOCYTES % 10.1 % (0.0-11.0); NEUTROPHIL # 9.1 10^3/ul (1.6-7.5); NEUTROPHILS % 78.5 % (39.0-77.0); PLATELET COUNT 504 10^3/UL (140-415); RED BLOOD COUNT 2.83 10^6/ul (4.70-6.10); RED CELL DISTRIBUTION WIDTH 13.4 % (11.5-14.5)
[2018-07-09] MEDS: PANTOPRAZOLE (EC) 40 MG TAB PO (06:51)
[2018-07-09] MEDS: DOCUSATE SODIUM 100 MG CAP PO ×2 (08:48→21:02)
[2018-07-09] MEDS: OXYCODONE/ACETAMINOPHEN (10/325) TAB PO ×3 (08:53→16:43)
[2018-07-09] MEDS: DUTASTERIDE 0.5 MG CAP PO (09:52)
[2018-07-09] MEDS: FLUTICASONE/VILANTEROL 100-25 INH (09:52)
[2018-07-09] MEDS: GABAPENTIN 400 MG CAP PO (09:54)
[2018-07-09] MEDS: GABAPENTIN 100 MG CAP PO ×3 (09:55→21:03)
[2018-07-09] MEDS: BACLOFEN 10 MG TAB PO ×2 (09:58→21:03)
[2018-07-09] MEDS: FERROUS FUMARATE (SR) TAB PO (09:58)
[2018-07-09] MEDS: METOPROLOL (XL) 25 MG TAB PO ×2 (09:58→21:04)
[2018-07-09] MEDS: DOXAZOSIN 4 MG TAB PO (21:02)
[2018-07-09] MEDS: SENNA TAB PO (21:02)
[2018-07-09] MEDS: ATORVASTATIN 10 MG TAB PO (21:03)
[2018-07-09] MEDS: TAMSULOSIN (SR) 0.4 MG CAP PO (21:03)
[2018-07-09] MEDS: ZOLPIDEM 5 MG TAB PO (21:03)
[2018-07-10] MEDS: HYDROmorphONE 2 MG/ML SYG IV ×8 (00:33→23:41)
[2018-07-10] MEDS: PANTOPRAZOLE (EC) 40 MG TAB PO (06:17)
[2018-07-10 07:16] LABS: ADD MAN DIFF? NO
[2018-07-10 07:20] LABS: BASOPHILS % 0.4 % (0.0-2.0); EOSINOPHILS # 0.1 10^3/ul (0.0-0.5); EOSINOPHILS % 0.9 % (0.0-7.0); HEMATOCRIT 31.4 % (42.0-52.0); LYMPHOCYTES # 1.1 10^3/ul (0.8-2.9); LYMPHOCYTES % 11.1 % (15.0-51.0); MEAN CORPUSCULAR HEMOGLOBIN 32.6 pg (29.0-33.0); MEAN CORPUSCULAR HGB CONC 31.8 g/dl (32.0-37.0); MEAN CORPUSCULAR VOLUME 102.3 fl (82.0-101.0); MEAN PLATELET VOLUME 8.4 fl (7.4-10.4); MONOCYTES % 9.7 % (0.0-11.0); NEUTROPHIL # 7.8 10^3/ul (1.6-7.5); NEUTROPHILS % 77.3 % (39.0-77.0); PLATELET COUNT 535 10^3/UL (140-415); RED BLOOD COUNT 3.07 10^6/ul (4.70-6.10); RED CELL DISTRIBUTION WIDTH 13.4 % (11.5-14.5)
[2018-07-10 07:20] LABS: WHITE BLOOD COUNT 10.1 10^3/ul (4.8-10.8)
[2018-07-10 07:45] LABS: C-REACTIVE PROTEIN 4.6 mg/dl (0.0-0.9)
[2018-07-10] MEDS: FLUTICASONE/VILANTEROL 100-25 INH (08:49)
[2018-07-10] MEDS: DUTASTERIDE 0.5 MG CAP PO (08:50)
[2018-07-10] MEDS: DOCUSATE SODIUM 100 MG CAP PO ×2 (08:50→21:01)
[2018-07-10] MEDS: GABAPENTIN 100 MG CAP PO ×3 (08:50→21:01)
[2018-07-10] MEDS: METOPROLOL (XL) 25 MG TAB PO ×2 (08:50→21:03)
[2018-07-10] MEDS: OXYCODONE/ACETAMINOPHEN (10/325) TAB PO (08:50)
[2018-07-10] MEDS: FERROUS FUMARATE (SR) TAB PO (08:50)
[2018-07-10] MEDS: BACLOFEN 10 MG TAB PO ×2 (08:51→21:01)
[2018-07-10] MEDS: IBUPROFEN 600 MG TAB PO ×2 (12:41→21:02)
[2018-07-10] MEDS: AL HYDROX/MG HYDROX/SIMETH 30 ML CUP PO (13:02)
[2018-07-10] MEDS: GABAPENTIN 400 MG CAP PO (18:37)
[2018-07-10] MEDS: SENNA TAB PO (21:01)
[2018-07-10] MEDS: ATORVASTATIN 10 MG TAB PO (21:01)
[2018-07-10] MEDS: TAMSULOSIN (SR) 0.4 MG CAP PO (21:01)
[2018-07-10] MEDS: DOXAZOSIN 4 MG TAB PO (21:03)
[2018-07-11] MEDS: HYDROmorphONE 2 MG/ML SYG IV ×7 (03:46→16:13)
[2018-07-11] MEDS: PANTOPRAZOLE (EC) 40 MG TAB PO (06:00)
[2018-07-11] MEDS: OXYCODONE/ACETAMINOPHEN (10/325) TAB PO ×2 (07:38→13:19)
[2018-07-11] MEDS: GABAPENTIN 100 MG CAP PO ×2 (07:39→14:34)
[2018-07-11] MEDS: DUTASTERIDE 0.5 MG CAP PO (09:08)
[2018-07-11] MEDS: FERROUS FUMARATE (SR) TAB PO (09:09)
[2018-07-11] MEDS: BACLOFEN 10 MG TAB PO (09:09)
[2018-07-11] MEDS: FLUTICASONE/VILANTEROL 100-25 INH (09:09)
[2018-07-11] MEDS: IBUPROFEN 600 MG TAB PO ×2 (09:11→14:25)
[2018-07-11] MEDS: METOPROLOL (XL) 25 MG TAB PO (09:12)
[2018-07-11] MEDS: HYDROmorphONE 1 MG/ML SYG IV ×2 (09:14→21:30)
[2018-07-11] MEDS: DOCUSATE SODIUM 100 MG CAP PO (09:16)
[2018-07-14 13:31] LABS: PROCALCITONIN <0.10 ng/mL (<0.10)
== END 2018-07-11 18:00 | disposition home health service (06) | DRG 560 ==
LOC: VRC 23:00
PROC: F07Z5ZZ Bed Mobility Treatment (ICD-10-PCS; principal; 2018-06-27)
PROC: F08Z2ZZ Grooming/Personal Hygiene Treatment (ICD-10-PCS; 2018-06-27)
DX: Z47.89 Encounter for other orthopedic aftercare (principal); C85.90 Non-Hodgkin lymphoma, unspecified, unspecified site; D62 Acute posthemorrhagic anemia; M54.16 Radiculopathy, lumbar region; J44.9 Chronic obstructive pulmonary disease, unspecified; G47.30 Sleep apnea, unspecified; E78.5 Hyperlipidemia, unspecified; I10 Essential (primary) hypertension; N40.0 Benign prostatic hyperplasia without lower urinary tract symptoms; I25.10 Atherosclerotic heart disease of native coronary artery without angina pectoris; K59.00 Constipation, unspecified; F06.31 Mood disorder due to known physiological condition with depressive features
CPT/HCPCS: 72131; 72158; 80048; 80053; 81001; 82728; 83540; 84145; 85025; 85651; 86140; 87081; 87086; 97110; 97112; 97116; 97150; 97163; 97166; 97530; 97535; 97542